=== PATIENT | female | born 1995 | race Caucasian/White ===

== ENCOUNTER 2020-10-08 21:14 | Emergency (ER) | payer BC, OTHER ==
[~2020-10-08] VITALS: Ht 170.2 cm; Wt 81.8 kg
[2020-10-08] MEDS ORDERED: HYDROCODONE/ACETAMINOPHEN 5-325 MG TABLET PO ONE ×2 (23:15)
[2020-10-08] MEDS ORDERED: CEPHALEXIN MONOHYDRATE 500 MG CAPSULE PO ONE (23:15)
[2020-10-08] MEDS ORDERED: ACETAMINOPHEN 500 MG TABLET PO ONE (23:30)
[2020-10-08 23:44] VITALS: BP 117/70
[2020-10-08] MEDS ORDERED: ONDANSETRON HCL 4 MG TABLET PO ONE (23:45)
== END 2020-10-09 00:35 | disposition home or self-care (01) ==
LOC: EMS 21:19
DX: N61.0 Mastitis without abscess (principal)
CPT/HCPCS: 99284; Q0162